=== PATIENT | female | born 1955 | race Caucasian/White ===

== ENCOUNTER 2023-01-08 11:05 | Observation (INO) | payer MEDICARE, MEDICAID, SELFPAY ==
[2023-01-08] VITALS (10 sets, daily range): BP systolic 118–146; BP diastolic 64–90; PULSE 65–91; RESP 15–27; TEMP 36.8–37.2; O2SAT 96–99; BMI 36.1; BMI 36.4
--- NOTE | ~2023-01-08 | CT_ITS ---
EXAMINATION: CT ABDOMEN AND PELVIS WITH CONTRAST CLINICAL INFORMATION: Right lower quadrant pain. Anemia. Rule out mass. COMPARISON: None available. TECHNIQUE: Multidetector volumetric images were obtained from the superior aspect of the liver through the pubic symphysis following administration 85 mL of Omnipaque 350 intravenous contrast. Sagittal and coronal reformatted images were obtained on the technologist's workstation. Oral contrast: Yes This CT examination was performed using dose optimization techniques as appropriate, variously including the following: *Automated exposure control *Adjustment of mA and/or kV according to patient size (this includes techniques or standardized protocols for targeted exams where dose is matched to indication/reason for exam; i.e. extremities or head) *Use of iterative reconstruction technique DLP: 686 mGy-cm FINDINGS: LUNG BASES: Tortuous descending thoracic aorta. Esophageal hernia. LIVER, GALLBLADDER, AND BILIARY TREE: The liver is normal in size, shape, and attenuation. Small liver cysts. No biliary ductal dilatation is present. The gallbladder is unremarkable with no evidence of radiopaque gallstones, gallbladder wall thickening, or obvious pericholecystic inflammatory changes. PANCREAS: Unremarkable. SPLEEN: Unremarkable. ADRENAL GLANDS: Unremarkable. KIDNEYS AND URETERS: The kidneys are normal in size, shape, and attenuation. There is mild [id number] right hydronephrosis and proximal ureteral dilatation. The right distal ureter does not appear dilated. No stone is seen. The left kidney is unremarkable. BLADDER: Unremarkable. GASTROINTESTINAL TRACT: Diverticulosis of the colon. No evidence of diverticulitis. No mass seen. The small and large bowel are unremarkable. The appendix is unremarkable. ABDOMINAL WALL: Small umbilical hernia containing fat. LYMPH NODES: Normal. VASCULAR: Unremarkable. PELVIC VISCERA: Unremarkable. OSSEOUS STRUCTURES: Curvature of the lumbar spine to the left and degenerative changes. CT/CT abdomen pelvis w IV con IMPRESSION: Diverticulosis. No evidence of diverticulitis. Large esophageal hernia. Mild to moderate right hydronephrosis and proximal ureteral dilatation. The right distal ureter does not appear dilated. No stone seen. Fleischner guidelines were followed.
--- NOTE | ~2023-01-08 | US_ITS ---
EXAMINATION: ULTRASOUND RENAL AND BLADDER CLINICAL INFORMATION: Right hydronephrosis. COMPARISON: CT abdomen from 01/08/2023 TECHNIQUE: Real-time imaging of the right kidney and bladder FINDINGS: RIGHT KIDNEY: 11.9 x 5.3 x 5.6 cm (SAG x AP x TRV). The kidney is normal in size, contour, and echogenicity. Renal cortical thickness is normal. Mild right-sided hydroureteronephrosis. No calculus identified. LEFT KIDNEY: Not evaluated. BLADDER: Limited evaluation of the urinary bladder demonstrates a right ureteral jet visualized. US/US renal RT IMPRESSION: 1. Mild right-sided hydroureteronephrosis without nephrolithiasis. 2. Limited evaluation of the urinary bladder demonstrates a right ureteral jet visualized. 3. Left kidney not evaluated.
--- NOTE | 2023-01-08 11:16 | ECG_ITS ---
Test Reason : low h+h Blood Pressure : / mmHG Vent. Rate : 079 BPM Atrial Rate : 079 BPM P-R Int : 176 ms QRS Dur : 094 ms QT Int : 396 ms P-R-T Axes : 043 -10 017 degrees QTc Int : 454 ms Normal sinus rhythm Normal ECG No previous ECGs available Referred By: Vincent Nolnad Electronically Signed By:HERBER RODRÍGUEZ
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
[2023-01-08 11:40] LABS: Basophils Absolute Auto 0.1 X10*3/uL (0.0-0.2); Basophils Percent Auto 0.8 % (0-2); Eosinophils Absolute Auto 0.1 X10*3/uL (0.0-0.4); Eosinophils Percent Auto 1.7 % (0-4); Hematocrit 23.5 % (37.0-47.0); Imm Gran Abs Auto 0.04 X10*3/uL (0.00-0.03); Imm Gran Pct Auto 0.6 % (0.0-0.4); Lymphocytes Absolute Auto 0.8 X10*3/uL (1.2-4.9); Lymphocytes Percent Auto 12.1 % (20-40); MANUAL DIFF FLAG SCAN; Mean Corpuscular HGB Conc 27.2 g/dl (31.0-35.0); Mean Corpuscular Hemoglobin 16.2 pg (27.0-33.0); Monocytes Absolute Auto 0.4 X10*3/uL (0.1-1.2); Monocytes Percent Auto 5.9 % (2-11); Neutrophils Percent Auto 78.9 % (45-73); PLT CLUMP 1; Red Blood Count 3.96 X10*6/uL (4.20-5.50); Red Cell Distribution Width 21.2 % (11.0-16.0); SCAN SMEAR FLAG 1
[2023-01-08 11:43] LABS: Hemoglobin 6.4 g/dl (12.0-16.0)
[2023-01-08 11:44] LABS: Mean Corpuscular Volume 59.3 fL (80.0-98.0)
--- OUTSIDE RECORDS SUMMARY | 2023-01-08 11:46 | XMS_ITS | Continuity of Care Document ---
Author Name Unknown Organization [facility] Adult Address [address] [place] [address]- Care Team Providers Care Capper Machine Operator Name Role Phone Elis FANG, Reagan Primary Care Physician Encounter [facility] Date(s): 08/31/21 - 11/01/21 [facility] Adult [address] [place] [address]- Attending Physician: Reagan Gillis MD Allergies, Adverse Reactions, Alerts Substance Reaction Severity Status lisinopril Active Other Environmental Allergy metal- itching Active Immunizations Given and Recorded Vaccine Date Status Refusal Reason SARS-CoV-2 (COVID-19) mRNA BNT-162b2 vac 03/29/21 Recorded SARS-CoV-2 (COVID-19) mRNA-1273 vaccine 09/23/20 R ecorded SARS-CoV-2 (COVID-19) mRNA-1273 vaccine 08/26/20 R ecorded Medications amLODIPine 5 mg oral tablet 1 tablet, By Mouth, Daily, # 90 tablet, 1 Refills, Maintenance, 09/13/21 19:37:00 EDT, [facility]/pharmacy#[id number], 155.2, cm, 08/31/21 7:57:00 EDT, Height Start Date: 09/13/21 Status: Ordered atorvastatin 10 mg oral tablet 1 tablet, By Mouth, Daily, # 90 tablet, 1 Refills, Maintenance, 09/12/21 14:26:00 EDT, [facility]/pharmacy#[id number], 155.2, cm, 08/31/21 7:57:00 EDT, Height Start Date: 09/12/21 Status: Ordered irbesartan 75 mg oral tablet 1 tablet, By Mouth, Daily, # 90 tablet, 1 Refills, [id number], 155.2, cm, 11/03/20 14:15:00 EDT, Height Start Date: 08/17/21 Status: Ordered levothyroxine 0.1 mg oral tablet 1 tablet, By Mouth, Daily, # 90 tablet, 1 Refills, [facility], 155.2, cm, 11/03/20 14:15:00 EDT, Height Start Date: 06/12/21 Status: Ordered omeprazole 20 mg oral delayed release tablet 1 tablet, By Mouth, Daily, # 28 tablet, 6 Refills, 11/01/21 11:15:00 EDT, [facility]/pharmacy #[id number], 155.2, cm, 08/31/21 7:57:00 EDT, Height Start Date: 11/01/21 Status: Ordered tamoxifen 20 mg oral tablet 1 tablet = 20 mg, By Mouth, Daily, # 90 tablet, 2 Refills, Maintenance, 05/27/16 9:33:08, Tablet Start Date: 05/27/16 Status: Ordered Problem List Condition Effective Dates Status Health Status Inform ant Benign hypertension(Confirmed) Active GERD (gastroesophageal reflu x disease)(Confirmed) Active Glaucoma(Confirmed) Active 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
--- OUTSIDE RECORDS SUMMARY | 2023-01-08 11:46 | XMS_ITS | Continuity of Care Document ---
Author Name Unknown Organization [facility] Adult Address [address] [place] [address]- Care Team Providers Care Operations Lieutenant Name Role Phone Ahsley AYALA, Heather Walker Primary Care Physicia n Encounter [facility] Date(s): 10/16/20 - 11/15/[address] [facility] Adult [address] [place] [id number]- Allergies, Adverse Reactions, Alerts Substance Reaction Severity Status lisinopril Active Other Environmental Allergy metal- itching Active Immunizations Given and Recorded Vaccine Date Status Refusal Reason SARS-CoV-2 (COVID-19) mRNA-1273 vaccine 09/23/20 R ecorded SARS-CoV-2 (COVID-19) mRNA-1273 vaccine 08/26/20 R ecorded Medications amLODIPine 5 mg oral tablet 5 mg, 1, tablet, By Mouth, Daily, # 90 tablet, Refills 1, Tot. Refills 1, Maintenance, 11/03/20 14:20:00 EDT, Route to Pharmacy Electronically, [facility]/pharmacy #[id number], Partial fill upon patient request if the prescription is for a schedule II opioid drug.... Start Date: 11/03/20 Status: Ordered atorvastatin 10 mg oral tablet 1 tablet = 10 mg, By Mouth, Daily, # 90 tablet, 0 Refills, Maintenance, 11/03/20 14:13:00 EDT, [facility]/pharmacy #[id number], Partial fill upon patient request if the prescription is for a schedule II opioid drug., 155.2, cm, 11/03/20 13:47:00 EDT, Height Start Date: 11/03/20 Status: Ordered irbesartan 75 mg oral tablet 1 tablet = 75 mg, By Mouth, Daily, # 90 tablet, 1 Refills, Maintenance, 11/03/20 14:20:00 EDT, Tablet, [id number], Partial fill upon patient request if the prescription is for a schedule II opioid drug., 155.2, cm, 11/03/20 14:15:00 EDT, Height Start Date: 11/03/20 Status: Ordered levothyroxine 0.1 mg oral tablet 1 tablet = 100 mcg, By Mouth, Daily, # 90 tablet, 1 Refills, Maintenance, 11/03/20 14:09:00 EDT, Tablet, [id number], Partial fill upon patient request if the prescription is for a schedule IIopioid drug., 155.2, cm, 11/03/20 13:47:00 EDT, Height Start Date: 11/03/20 Status: Ordered omeprazole 20 mg oral delayed release tablet 1 tablet = 20 mg, By Mouth, Daily, # 30 tablet, 3 Refills, Maintenance, 10/18/20 15:54:00 EDT, EC Tablet, [facility]/pharmacy #[id number], Partial fill upon patient request if the prescription is for a schedule II opioid drug., 155.2, cm, 10/18/20 15:08:00 EDT, He... Start Date: 10/18/20 Status: Ordered tamoxifen 20 mg oral tablet [...] breast(Confirmed) Active HLD (hyperlipidemia)(Confirmed) Active Hypothyroidism(Confirmed) Active Use of tamoxifen (Nolvadex)(Confirmed) Active Encounter for screening colonoscopy(Confirmed) Active Social History Social History Type Response Smoking Status Never smoker entered on: 07/07/14 Sex
--- OUTSIDE RECORDS SUMMARY | 2023-01-08 11:46 | XMS_ITS | Continuity of Care Document ---
Author Name Unknown Organization [facility] Adult Address [address] [place] [address]- Care Team Providers Care Set Up / Operator Name Role Phone Ashley AYALA, Heather Walker Primary Care Physicia n [id number] Date(s): 02/10/21 - 07/25/21 [facility] Adult [address] [place] [id number]- Attending Physician: Ashley AYALA, Heather Walker Referring Physician: Luis Velez MD Allergies, Adverse Reactions, Alerts Substance Reaction Severity Status lisinopril Active Other Environmental Allergy metal- itching Active Immunizations Given and Recorded Vaccine Date Status Refusal Reason SARS-CoV-2 (COVID-19) mRNA-1273 vaccine 09/23/20 R ecorded SARS-CoV-2 (COVID-19) mRNA-1273 vaccine 08/26/20 R ecorded Medications amLODIPine 5 mg oral tablet 1 tablet, By Mouth, Daily, # 90 tablet, 1 Refills, [facility], 155.2, cm, 11/03/20 14:15:00 EDT, Height Start Date: 03/14/21 Status: Ordered atorvastatin 10 mg oral tablet 1 tablet, By Mouth, Daily, # 90 tablet, 1 Refills, [facility], 155.2, cm, 11/03/20 14:15:00 EDT, Height Start Date: 02/03/21 Status: Ordered irbesartan 75 mg oral tablet 1 tablet, By Mouth, Daily, # 90 tablet, 1 Refills, [facility], 155.2, cm, 11/03/20 14:15:00 EDT, Height Start Date: 03/14/21 Status: Ordered levothyroxine 0.1 mg oral tablet 1 tablet, By Mouth, Daily, # 90 tablet, 1 Refills, [facility], 155.2, cm, 11/03/20 14:15:00 EDT, Height Start Date: 06/12/21 Status: Ordered omeprazole 20 mg oral delayed release tablet 1 tablet, By Mouth, Daily, # 28 tablet, 2 Refills, [facility], 155.2, cm, 11/03/20 14:15:00 EDT, Height Start Date: 05/04/21 Status: Ordered tamoxifen 20 mg oral tablet [...]
--- OUTSIDE RECORDS SUMMARY | 2023-01-08 11:46 | XMS_ITS | Continuity of Care Document ---
Author Name Unknown Organization [facility] Adult Address [address] [place] [address]- Care Team Providers Care Assistant To The President Name Role Phone Elis FAGN, Reagan Primary Care Physician Encounter [facility] Date(s): 10/08/22 - 11/07/22 [facility] Adult [address] [place] [address]- Allergies, Adverse Reactions, Alerts Substance Reaction Severity Status lisinopril Active Other Environmental Allergy metal- itching Active Immunizations Given and Recorded Vaccine Date Status Refusal Reason SARS-CoV-2 (COVID-19) mRNA BNT-162b2 vac 03/29/21 Recorded SARS-CoV-2 (COVID-19) mRNA-1273 vaccine 09/23/20 R ecorded SARS-CoV-2 (COVID-19) mRNA-1273 vaccine 08/26/20 R ecorded Medications amLODIPine 5 mg oral tablet 1 tablet, By Mouth, Daily, # 90 tablet, 1 Refills, Maintenance, 07/11/22 16:13:00 EDT, [facility], 155.2, cm, 11/23/21 15:08:00 EDT, Height Start Date: 07/11/22 Status: Ordered atorvastatin 10 mg oral tablet 1 tablet, By Mouth, Daily, # 90 tablet, 1 Refills, [facility], 155.2, cm, 11/23/21 15:08:00 EDT, Height Start Date: 12/19/21 Status: Ordered irbesartan 75 mg oral tablet 1 tablet, By Mouth, Daily, # 90 tablet, 0 Refills, Maintenance, 10/09/22 8:43:00 EDT, [facility], 155.2, cm, 11/23/21 15:08:00 EDT, Height Start Date: 10/09/22 Status: Ordered levothyroxine 0.1 mg oral tablet 1 tablet, By Mouth, Daily, # 90 tablet, 1 Refills, Maintenance, 07/11/22 16:33:00 EDT, [facility], 155.2, cm, 11/23/21 15:08:00 EDT, Height Start Date: 07/11/22 Status: Ordered omeprazole 20 mg oral enteric coated capsule 1 capsule, By Mouth, Daily, # 90 capsule, 1 Refills, Maintenance, 10/08/22 16:22:00 EDT, [facility], 155.2, cm, 11/23/21 15:08:00 EDT, Height Start Date: 10/08/22 Status: Ordered tamoxifen 20 mg oral tablet 1 tablet = 20 mg, By Mouth, Daily, # 90 tablet, 2 Refills, Maintenance, 05/27/16 9:33:08, Tablet Start Date: 05/27/16 Status: Ordered Problem List Condition Confirmation Course Effective Dates Status H ealth Status Informant GERD (gastroesophageal reflux disease) Confirmed Active Glaucoma Confirmed Active 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
--- OUTSIDE RECORDS SUMMARY | 2023-01-08 11:46 | XMS_ITS | Continuity of Care Document ---
Author Name Unknown Organization [facility] Adult Address [address] [place] [address]- Care Team Providers Care Batch Mixer Name Role Phone Reagan Gillis MD Primary Care Physician [phone] Encounter [facility] Date(s): 11/24/21 - 12/24/21 [facility] Adult [address] [place] [address]- Allergies, Adverse Reactions, Alerts Substance Reaction Severity [...] tablet, 1 Refills, Maintenance, 09/13/21 19:37:00 EDT, [facility]/pharmacy#[id number], 155.2, cm, 08/31/21 7:57:00 EDT, Height Start Date: 09/13/21 Status: Ordered atorvastatin 10 mg oral tablet 1 tablet, By Mouth, Daily, # 90 tablet, 1 Refills, [facility], 155.2, cm, 11/23/21 15:08:00 EDT, Height Start Date: 12/19/21 Status: Ordered irbesartan 75 mg oral tablet 1 tablet, By Mouth, Daily, # 90 tablet, 1 Refills, [facility], 155.2, cm, 11/03/20 14:15:00 EDT, Height Start Date: 08/17/21 Status: Ordered levothyroxine 0.1 mg oral tablet 1 tablet, By Mouth, Daily, # 90 tablet, 1 Refills, [facility], 155.2, cm, 11/23/21 15:08:00 EDT, Height Start Date: 12/19/21 Status: Ordered omeprazole 20 mg oral delayed release tablet 1 tablet, By Mouth, Daily, # 28 tablet, 6 Refills, 11/01/21 11:15:00 EDT, [id number], 155.2, cm, 08/31/21 7:57:00 EDT, Height Start Date: 11/01/21 Status: Ordered tamoxifen 20 mg oral tablet 1 tablet = 20 mg, By Mouth, Daily, # 90 tablet, 2 Refills, Maintenance, 05/27/16 9:33:08, Tablet Start Date: 05/27/16 Status: Ordered Problem List Condition Effective Dates Status Health Status Inform ant GERD (gastroesophageal reflu x disease)(Confirmed) Active Glaucoma(Confirmed) Active 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
--- OUTSIDE RECORDS SUMMARY | 2023-01-08 11:46 | XMS_ITS | Continuity of Care Document ---
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 Start Date: 11/03/20 Status: Ordered atorvastatin 10 mg oral tablet 1 tablet = 10 mg, By Mouth, Daily, # 90 tablet, 0 Refills, Maintenance, 11/03/20 14:13:00 EDT, [id number], Partial fill upon patient request [...] 1 Refills, Maintenance, 11/03/20 14:09:00 EDT, Tablet, [facility]/pharmacy #[id number], Partial fill upon patient request if the prescription is for a schedule IIopioid drug., 155.2, cm, 11/03/20 13:47:00 EDT, Height Start Date: 11/03/20 Status: Ordered omeprazole 20 mg oral delayed release tablet 1 tablet = 20 mg, By Mouth, Daily, # 30 tablet, 3 Refills, Maintenance, 10/18/20 15:54:00 EDT, EC Tablet, [facility]/pharmacy #[id number], Partial fill upon patient request [...] (Nolvadex)(Confirmed) Active Encounter for screening colonoscopy(Confirmed) Active Diagnosis Diagnosis Type Effective Dates Health Status Clinical Service Informant Benign hypertension Discharge Diagnosis 11/03/20 Hypothyroidism Discharge Diagnosis 11/03/20 History of ductal carcinoma in situ (DCIS) of breast Discharge Diagnosis 11/03/20 Positive depression screening Discharge Diagnosis 11/03/20 Vital Signs Most recent to oldest [Reference Range]: 1 2 Height 155.2 cm (11/03/20 2:15 PM) 155.2 cm (11/03/20 1:47 PM) Weight 89.2 kg (11/03/20 1:47 PM) Oxygen Saturation [94-100 %] 98 % (11/03/20 1:47 PM) Pulse Rate [55-90 bpm] 69 bpm (11/03/20 1:47 PM) Body Mass Index [18.5-24.99] 37.03 *>HHI* (11/03/20 1:47 PM) Blood Pressure [90-138/55-84 mm Hg] 125/ 82mm Hg (11/03/20 2:15 PM) 120/82mm Hg (11/03/20 1:47 PM) Temperature [96.8-100.4 DegF] 98.8 DegF (11/03/20 1:47 PM) Mode of Delivery (Oxygen) Room air (11/03/20 1:47 PM) Blood pressure sites Arm, left (11/03/20 1:47 PM) Temperature Route Oral (11/03/20 1:47 PM) Weight Obtained Via Standing scale (11/03/20 1:47 PM) Social History Social History Type Response Smoking Status Never smoker entered on: 07/07/14 Sex
--- OUTSIDE RECORDS SUMMARY | 2023-01-08 11:46 | XMS_ITS | Continuity of Care Document ---
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) - 10/18/20 GERD (gastroesophageal reflux disease)(Discharge Diagnosis) - 10/18/20 Attending Physician: Not on Staff, Attending MD Allergies, Adverse Reactions, Alerts Substance Reaction Severity Status lisinopril Active Other Environmental Allergy metal- itching Active Immunizations Given and Recorded Vaccine Date Status Refusal Reason SARS-CoV-2 (COVID-19) mRNA-1273 vaccine 09/23/20 R ecorded SARS-CoV-2 (COVID-19) mRNA-1273 vaccine 08/26/20 R ecorded Medications amLODIPine 5 mg oral tablet 5 mg, 1, tablet, By Mouth, Daily, Additional refills require an office visit, # 30 tablet, Refills 0, Tot. Refills 0, Maintenance, 10/18/20 15:51:00 EDT, Route to Pharmacy Electronically, [facility]/pharmacy #[id number], Partial fill upon patient request if the pr... Start Date: 10/18/20 Status: Ordered irbesartan 75 mg oral tablet 1 tablet = 75 mg, By Mouth, Daily, Additional refills require an office visit, # 30 tablet, 0 Refills, Maintenance, 10/18/20 15:54:00 EDT, Tablet, [facility]/pharmacy #[id number], Partial fill upon patient request if the prescription is for a schedule II opioid drSujey. Start Date: 10/18/20 Status: Ordered levothyroxine 0.1 mg oral tablet 1 tablet = 100 mcg, By Mouth, Daily, # 30 tablet, 0 Refills, Maintenance, 10/18/20 15:45:00 EDT, Tablet, Partial fill upon patient request if the prescription is for a schedule II opioid drug. Start Date: 10/18/20 Status: Ordered omeprazole 20 mg oral delayed release tablet 1 tablet = 20 mg, By Mouth, Daily, # 30 tablet, 3 Refills, Maintenance, 10/18/20 15:54:00 EDT, EC Tablet, [facility]/pharmacy #[id number], Partial fill upon patient request if the prescription is for a schedule II opioid drug., 155.2, cm, 10/18/20 15:08:00 EDT, [facility] Start Date: 10/18/20 Status: Ordered tamoxifen 20 mg oral tablet 1 tablet = 20 mg, By Mouth, Daily, # 90 tablet, 2 Refills, Maintenance, 05/27/16 9:33:08, Tablet Start Date: 05/27/16 Status: Ordered Problem List Condition Effective Dates Status Health Status Inform ant Benign hypertension(Confirmed) Active GERD (gastroesophageal reflu x disease)(Confirmed) Active History of ductal carcinoma in situ (DCIS) of breast(Confirmed) Active Hypercholesteremia(Confirmed) Active Hypothyroidism(Confirmed) Active Use of tamoxifen (Nolvadex)(Confirmed) Active Encounter for screening colonoscopy(Confirmed) Active Diagnosis Diagnosis Type Effective Dates Health Status Clinical Service Informant Benign hypertension Discharge Diagnosis 10/18/20 Hypercholesteremia Discharge Diagnosis 10/18/20 Hypothyroidism Discharge Diagnosis 10/18/20 History of ductal carcinoma in situ (DCIS) of breast Discharge Diagnosis 10/18/20 GERD (gastroesophageal reflux disease) Discharge Diagnosis 10/18/20 Vital Signs Most recent to oldest [Reference Range]: 1 Height 155.2 cm (10/18/20 3:08 PM) Weight 84 kg (10/18/20 3:08 PM) Body Mass Index [18.5-24.99] 34.87 *>HHI* (10/18/20 3:08 PM) Weight Obtained Via Patient/family state d (10/18/20 3:08 PM) Social History Social History Type Response Smoking Status Never smoker entered on: 07/07/14 Sex
--- OUTSIDE RECORDS SUMMARY | 2023-01-08 11:46 | XMS_ITS | Continuity of Care Document ---
Author Name Unknown Organization [facility] Adult Address [address] [place] [address]- Care Team Providers Care Career Education Teacher Name Role Phone Elis FANG, Reagan Primary Care Physician Encounter [facility] Date(s): 10/08/22 - 11/07/22 [facility] Adult [address] [place] [address]- Allergies, Adverse Reactions, Alerts Substance Reaction Severity [...] tablet, 1 Refills, Maintenance, 07/11/22 16:13:00 EDT, [facility], 155.2, cm, 11/23/21 15:08:00 EDT, Height Start Date: 07/11/22 Status: Ordered atorvastatin 10 mg oral tablet 1 tablet, By Mouth, Daily, # 90 tablet, 1 Refills, [facility], 155.2, cm, 11/23/21 15:08:00 EDT, Height Start Date: 12/19/21 Status: Ordered irbesartan 75 mg oral tablet 1 tablet, By Mouth, Daily, # 90 tablet, 0 Refills, Maintenance, 10/09/22 8:43:00 EDT, [facility] 284[facility], 155.2, cm, 11/23/21 15:08:00 EDT, Height Start Date: 10/09/22 Status: Ordered levothyroxine 0.1 mg oral tablet 1 tablet, By Mouth, Daily, # 90 tablet, 1 Refills, Maintenance, 07/11/22 16:33:00 EDT, [facility], 155.2, cm, 11/23/21 15:08:00 EDT, Height Start Date: 07/11/22 Status: Ordered omeprazole 20 mg oral enteric coated capsule 1 capsule, By Mouth, Daily, # 90 capsule, 1 Refills, Maintenance, 10/08/22 16:22:00 EDT, [facility], 155.2, cm, 11/23/21 15:08:00 EDT, Height Start [...] Team Personnel Name: Reagan Gillis MD Position: [facility] Physician - Primary Care Member Role: PCP Address: Address: [address] [place] [address] [address] [place] [address]- Care Team Related Persons Name: RONAL MAY Address: home [address] [place] [id number]
--- OUTSIDE RECORDS SUMMARY | 2023-01-08 11:46 | XMS_ITS | Continuity of Care Document ---
Author Name Unknown Organization [facility] Adult Address [address] [place] [address]- Care Team Providers Care Motor Power Connector Name Role Phone Reagan Gillis MD Primary Care Physician [phone] Encounter [facility] Date(s): 11/23/21 - 12/23/21 [facility] Adult [address] [place] [address]- Attending Physician: Hailee Guillaume Admitting Physician: AdmtrHailee Referring Physician: Admtr, Ar8 Allergies, Adverse Reactions, Alerts Substance Reaction Severity [...] tablet, 1 Refills, Maintenance, 09/13/21 19:37:00 EDT, [facility]/pharmacy#[id number], 155.2, cm, 08/31/21 7:57:00 EDT, Height Start Date: 09/13/21 Status: Ordered atorvastatin 10 mg oral tablet 1 tablet, By Mouth, Daily, # 90 tablet, 1 Refills, [facility], 155.2, cm, 11/23/21 15:08:00 EDT, Height Start Date: 12/19/21 Status: Ordered irbesartan 75 mg oral tablet 1 tablet, By Mouth, Daily, # 90 tablet, 1 Refills, [facility] 41065, 155.2, cm, 11/03/20 14:15:00 EDT, Height Start Date: 08/17/21 Status: Ordered levothyroxine 0.1 mg oral tablet 1 tablet, By Mouth, Daily, # 90 tablet, 1 Refills, [facility] 57572, 155.2, cm, 11/23/21 15:08:00 EDT, Height Start Date: 12/19/21 Status: Ordered omeprazole 20 mg oral delayed release tablet 1 tablet, By Mouth, Daily, # 28 tablet, 6 Refills, 11/01/21 11:15:00 EDT, [facility]/pharmacy #[id number], 155.2, cm, 08/31/21 7:57:00 EDT, Height [...] Team Personnel Name: Reagan Gillis MD Address: [address] [place] [address]
--- OUTSIDE RECORDS SUMMARY | 2023-01-08 11:46 | XMS_ITS | Continuity of Care Document ---
Author Name Unknown Organization [facility] Adult Address [address] [place] [address]- Care Team Providers Care Asphalt Surface Heater Operator Name Role Phone Elis FANG, Reagan Primary Care Physician [phone] Encounter [facility] Date(s): 08/17/21 - 09/16/21 [facility] Adult [address] [place] [address]- Allergies, Adverse Reactions, Alerts Substance Reaction Severity [...] tablet, 1 Refills, Maintenance, 09/13/21 19:37:00 EDT, [facility]/pharmacy#[id number], 155.2, cm, 08/31/21 7:57:00 EDT, Height Start Date: 09/13/21 Status: Ordered atorvastatin 10 mg oral tablet 1 tablet, By Mouth, Daily, # 90 tablet, 1 Refills, Maintenance, 09/12/21 14:26:00 EDT, [facility]/pharmacy#[id number], 155.2, cm, 08/31/21 7:57:00 EDT, Height Start Date: 09/12/21 Status: Ordered irbesartan 75 mg oral tablet 1 tablet, By Mouth, Daily, # 90 tablet, 1 Refills, [facility], 155.2, cm, 11/03/20 14:15:00 EDT, Height Start Date: 08/17/21 Status: Ordered levothyroxine 0.1 mg oral tablet 1 tablet, By Mouth, Daily, # 90 tablet, 1 Refills, [facility], 155.2, cm, 11/03/20 14:15:00 EDT, Height Start Date: 06/12/21 Status: Ordered omeprazole 20 mg oral delayed release tablet 1 tablet, By Mouth, Daily, # 28 tablet, 2 Refills, [facility], 155.2, cm, 11/03/20 14:15:00 EDT, Height Start Date: 08/07/21 Status: Ordered tamoxifen 20 mg oral tablet [...]
--- OUTSIDE RECORDS SUMMARY | 2023-01-08 11:46 | XMS_ITS | Continuity of Care Document ---
Author Name Unknown Organization [facility] Adult Address [address] [place] [address]- Care Team Providers Care Mainspring Former Brace End Name Role Phone Reagan Gillis MD Primary Care Physician [phone] Encounter [facility] Date(s): 08/31/21 - 09/07/21 [facility] Adult [address] [place] [address]- Encounter Diagnosis Breast pain, left(Discharge Diagnosis) - 09/03/21 Skin mole(Discharge Diagnosis) - 09/03/21 Mild major depression, single episode(Discharge Diagnosis) - 09/03/21 Attending Physician: Reagan Gillis MD Allergies, Adverse [...] # 90 tablet, 1 Refills, [facility], 155.2, cm, 11/03/20 14:15:00 EDT, Height Start Date: 03/14/21 Status: Ordered atorvastatin 10 mg oral tablet 1 tablet, By Mouth, Daily, # 90 tablet, 1 Refills, [facility], 155.2, cm, 11/03/20 14:15:00 EDT, Height Start Date: 02/03/21 Status: Ordered irbesartan 75 mg oral tablet 1 tablet, By Mouth, Daily, # 90 tablet, 1 Refills, [facility], 155.2, cm, 11/03/20 14:15:00 EDT, Height Start Date: 08/17/21 Status: Ordered levothyroxine 0.1 mg oral tablet 1 tablet, By Mouth, Daily, # 90 tablet, 1 Refills, [facility], 155.2, cm, 11/03/20 14:15:00 EDT, Height Start Date: 06/12/21 Status: Ordered omeprazole 20 mg oral delayed release tablet 1 tablet, By Mouth, Daily, # 28 tablet, 2 Refills, [facility], 155.2, cm, 11/03/20 14:15:00 EDT, Height Start [...] Diagnosis Diagnosis Type Effective Dates Health Status Cl inical Service Informant Breast pain, left Discharge Diagnosis 09/03/21 Skin mole Discharge Diagnosis 09/03/21 Mild major depression, single episode Discharge Diagnosis 09/03/21 Vital Signs Most recent to oldest [Reference Range]: 1 Height 155.2 cm (08/31/21 7:57 AM) Weight 89 kg (08/31/21 7:57 AM) Oxygen Saturation [94-100 %] 98 % (08/31/21 7:57 AM) Pulse Rate [55-90 bpm] 111 bpm *H* (08/31/21 7:57 AM) Body Mass Index [18.5-24.99] 36.95 *>HHI* (08/31/21 7:57 AM) Blood Pressure [90-138/55-84 mm Hg] 110/ 70mm Hg (08/31/21 7:57 AM) Temperature [96.8-100.4 DegF] 98.6 DegF (08/31/21 7:57 AM) Mode of Delivery (Oxygen) Room air (08/31/21 7:57 AM) Blood pressure sites Arm, left (08/31/21 7:57 AM) Temperature Route Oral (08/31/21 7:57 AM) Weight Obtained Via Standing scale (08/31/21 7:57 AM) Social History Social History Type Response Smoking Status Never smoker entered on: 07/07/14 Sex
--- OUTSIDE RECORDS SUMMARY | 2023-01-08 11:46 | XMS_ITS | Continuity of Care Document ---
Author Name Unknown Organization [facility] Adult Address [address] [place] [address]- Care Team Providers Care Systems Specialist Name Role Phone Reagan Gillis MD Primary Care Physician Encounter [facility] Date(s): 11/23/21 - 11/30/21 [facility] Adult [address] [place] [address]- Encounter Diagnosis Well adult exam(Discharge Diagnosis) - 11/23/21 HTN (hypertension)(Discharge Diagnosis) - 11/23/21 Hyperlipidemia, unspecified(Discharge Diagnosis) - 11/23/21 Hypothyroidism(Discharge Diagnosis) - 11/23/21 GERD (gastroesophageal reflux disease)(Discharge Diagnosis) - 11/23/21 Attending Physician: Reagan Gillis MD Allergies, Adverse [...] tablet, 1 Refills, Maintenance, 09/13/21 19:37:00 EDT, [id number], 155.2, cm, 08/31/21 7:57:00 EDT, Height Start Date: 09/13/21 Status: Ordered atorvastatin 10 mg oral tablet 1 tablet, By Mouth, Daily, # 90 tablet, 1 Refills, Maintenance, 09/12/21 14:26:00 EDT, [id number], 155.2, cm, 08/31/21 7:57:00 EDT, Height Start Date: 09/12/21 Status: Ordered irbesartan 75 mg oral tablet 1 tablet, By Mouth, Daily, # 90 tablet, 1 Refills, [facility] 23043, 155.2, cm, 11/03/20 14:15:00 EDT, Height Start Date: 08/17/21 Status: Ordered levothyroxine 0.1 mg oral tablet 1 tablet, By Mouth, Daily, # 90 tablet, 1 Refills, [facility], 155.2, cm, 11/03/20 14:15:00 EDT, Height Start [...] Active Hypothyroidism(Confirmed) Active Obese class II(Confirmed) Active Diagnosis Diagnosis Type Effective Dates Health Status Clinical Service Informant Well adult exam Discharge Diagnosis 11/23/21 HTN (hypertension) Discharge Diagnosis 11/23/21 Hyperlipidemia, unspecified Discharge Diagnosis 11/23/21 Hypothyroidism Discharge Diagnosis 11/23/21 GERD (gastroesophageal reflux disease) Discharge Diagnosis 11/23/21 Vital Signs Most recent to oldest [Reference Range]: 1 2 Height 155.2 cm (11/23/21 3:08 PM) 155.2 cm (11/23/21 2:57 PM) Weight 86.3 kg (11/23/21 2:57 PM) Oxygen Saturation [94-100 %] 98 % (11/23/21 2:57 PM) Pulse Rate [55-90 bpm] 80 bpm (11/23/21 2:57 PM) Body Mass Index [18.5-24.99] 35.83 *>HHI* (11/23/21 2:57 PM) Blood Pressure [90-138/55-84 mm Hg] 123/ 71mm Hg (11/23/21 3:08 PM) 144/70mm Hg *H* (11/23/21 2:57 PM) Temperature [96.8-100.4 DegF] 98.8 DegF (11/23/21 2:57 PM) Mode of Delivery (Oxygen) Room air (11/23/21 2:57 PM) Blood pressure sites Arm, left (11/23/21 3:08 PM) Arm, left (11/23/21 2:57 PM) Temperature Route Oral (11/23/21 2:57 PM) Weight Obtained Via Standing scale (11/23/21 2:57 PM) Social History Social History Type Response Smoking Status Never (less than 100 in lifetime) entered on: 11/23/21 Sex
--- OUTSIDE RECORDS SUMMARY | 2023-01-08 11:47 | XMS_ITS | Continuity of Care Document ---
Author Name Unknown Organization [facility] Adult Address [address] [place] [address]- Care Team Providers Care Mainspring Winder Name Role Phone Ashley AYALA, Heather Walker Primary Care Physicia n Encounter [facility] Date(s): 06/25/21 - 07/25/21 [facility] Adult [address] [place] [address]- Attending Physician: Hailee Guillaume Admitting Physician: Hailee Guillaume Referring Physician: AdmtrHailee Allergies, Adverse Reactions, Alerts Substance Reaction Severity Status lisinopril Active Other Environmental Allergy metal- itching Active Immunizations Given and Recorded Vaccine Date Status Refusal Reason SARS-CoV-2 (COVID-19) mRNA-1273 vaccine 09/23/20 R ecorded SARS-CoV-2 (COVID-19) mRNA-1273 vaccine 08/26/20 R ecorded Medications amLODIPine 5 mg oral tablet 1 tablet, By Mouth, Daily, # 90 tablet, 1 Refills, [facility], 155.2, cm, 11/03/20 14:15:00 EDT, Height Start Date: 03/14/21 Status: Ordered atorvastatin 10 mg oral tablet 1 tablet, By Mouth, Daily, # 90 tablet, 1 Refills, [facility], 155.2, cm, 11/03/20 14:15:00 EDT, Height Start Date: 02/03/21 Status: Ordered irbesartan 75 mg oral tablet 1 tablet, By Mouth, Daily, # 90 tablet, 1 Refills, [facility], 155.2, cm, 11/03/20 14:15:00 EDT, Height Start Date: 03/14/21 Status: Ordered levothyroxine 0.1 mg oral tablet 1 tablet, By Mouth, Daily, # 90 tablet, 1 Refills, [facility], 155.2, cm, 11/03/20 14:15:00 EDT, Height Start Date: 06/12/21 Status: Ordered omeprazole 20 mg oral delayed release tablet 1 tablet, By Mouth, Daily, # 28 tablet, 2 Refills, [facility], 155.2, cm, 11/03/20 14:15:00 EDT, Height Start [...]
[2023-01-08 11:48] LABS: Prothrombin Time 11.6 SEC (11.1-13.3)
[2023-01-08 11:51] LABS: Partial Thromboplastin Time 24.3 SEC (26.0-36.4)
[2023-01-08 11:52] LABS: Alanine Aminotransferase 13 U/L (0-31); Albumin Level 4.2 g/dL (3.5-5.0); Alkaline Phosphatase 67 U/L (39-117); Anion Gap 10 (12-20); Aspartate Amino Transferase 19 U/L (5-31); Bilirubin Total 0.5 mg/dL (0.0-1.0); Blood Urea Nitrogen 10 mg/dL (9-16); Calcium 9.5 mg/dL (8.4-10.2); Carbon Dioxide 25 mmol/L (22-29); Chloride 110 mmol/L (96-108); Creatinine Clr Calc Pharmacy 71.9; Estimated Glomerular Filt Rate > 60; Glucose Random 103 mg/dL (60-115); Iron 15 mcg/dL (30-160); Lipase 19 U/L (8-78); Percent Iron Saturation 4 % (15-50); Phosphorus 2.2 mg/dL (2.7-4.5); Potassium 3.2 mmol/L (3.3-5.1); Sodium 142 mmol/L (135-145); Total Iron Binding Capacity 367 mcg/dL (228-428); Total Protein 7.7 g/dL (6.5-8.0); Unsaturated Iron Binding 352 ug/dL
[2023-01-08 12:07] LABS: Platelet Count 269 X10*3/uL (160-400); SLIDE REVIEW VERIFIED; White Blood Count 6.4 X10*3/uL (4.8-10.8)
[2023-01-08 13:40] LABS: Troponin-I High Sensitivity < 2.7 ng/L (<3.5-17.0)
--- NOTE | 2023-01-08 14:48 | PC.NURSE ---
pt sent to ED for low H&H. pt a&o x4, pleasant, calm, and cooperative. pt color appears well and is talking in full complete sentences. daughter, MD at bedside. 18G IV established to the LAC, labs drawn and sent. 20G IV established to the RAC. blood currently transfusing. pt tolerating well. no reaction to blood products. pt currently resting on stretcher in no apparent distress. call rosa within pt reach.
[2023-01-08 15:32] LABS: OBS Int Ctl Valid YES; OBS1 NEGATIVE (NEGATIVE)
--- NOTE | 2023-01-08 16:08 | PHA.MEDREC ---
Pharmacy Consult ? Medication Reconciliation Pharmacy has completed the medication reconciliation. Patient reported medications. Dali Yepez, IglesiaD
--- NOTE | 2023-01-08 16:59 | PM.IMHP ---
History of Present Illness Date of Service: 01/08/23 Attending physician on admission: Fer Brizuela Chief Complaint: anemia 67-year-old female history of hypertension, hyperlipidemia, hypothyroidism, history of breast cancer s/p lumpectomy and briefly treated with tamoxifen presents to the ED with her daughter who is a physician due to significant anemia. She had her annual physical history with PCP and lab work revealed H/H 6.6/25.2%. She does deny any melena, hematochezia, hematemesis, epistaxis, easy bruisability. She does however report occasional chest pains with exertion, dyspnea on exertion, palpitations, near syncopal episodes ongoing for several weeks. Her daughter also reports she is more pale than usual. She does have very poor diet with PICA. Reports cooking dinner but will often only eat carrots and popcorn. Will eat between 1-2 bags of baby carrots in a day. He denies any anorexia, abdominal pain, nausea, vomiting. Denies any unintentional weight loss. She has never undergone screening colonoscopy. On arrival, no leukocytosis. Significant microcytic anemia with H/H 6.4/23.5%, MCV 59.3 renal function normal. There is a mild hypokalemia of 3.2, phosphorus 2.2, electrolytes otherwise normal. Iron 15, TIBC within normal limits 367, 4% iron saturation. Hepatic function normal. Troponin undetectable. Stool occult blood negative. EKG shows NSR, rate 79, no ST/T-wave abnormality. CT abdomen/pelvis pending. She is currently being transfused 2 units packed red blood cells. Review of Systems Review of Systems: General: No fevers, malaise, unintentional weight loss HEENT: No blurred vision, diplopia. No sore throat, nasal congestion, rhinorrhea, sinus pain, ear pain Cardiovascular:+chest pain, +palpitations, +ble edema. Respiratory: +fuchs. No shortness of breath at rest, wheezing, cough GI: No abdominal pain, nausea, vomiting, diarrhea, constipation, melena, hematochezia : No dysuria, hematuria, increased urinary frequency, decreased urinary output MSK: No myalgia, back pain Neuro: No headaches, weakness, paresthesias Skin: No rashes or lesions [facility] Medical History History of ductal carcinoma in situ (DCIS) of breast Hypothyroidism Hyperlipidemia Hypertension Surgical History S/P lumpectomy of breast Social History Smoked in Last 30 Days: No Use of substances other than those prescribed or required for medical reasons: No Advance Directives: No Advance Directives Information Provided: Yes Meds Allergies Allergy/AdvReac Type Severity Reaction Status Date / Time lisinopril Allergy Angioedema Verified 01/08/23 11:10 Active Medications: Current Medications Acetaminophen (Acetaminophen 325 Mg Tablet) 650 mg PO Q6H PRN PRN Reason: Pain, Mild (Pain Scale 1-3) Docusate Sodium (Docusate Sodium 100 Mg Capsule) 100 mg PO DAILY PRN PRN Reason: Constipation Ondansetron HCl (Ondansetron Hcl 4 Mg/2 Ml Vial) 4 mg IVPUSH Q8H PRN PRN Reason: Nausea and Vomiting Polyethylene Glycol/Electrolytes (Peg 3350/Na Sulf,Bicarb,Cl/Kcl 4,000 Ml Soln.Recon) 240 ml PO Q10M [facility] Stop: 01/08/23 21:41 Sodium Chloride (0.9 % Sodium Chloride Flush 3 Ml Syringe) 3 ml IVFLUSH QSHIFT [facility] Home Medications Medication Instructions Recorded Confirmed Last Taken Type amlodipine 5 mg tablet 5 mg PO DAILY 01/08/23 01/08/23 01/08/23 History atorvastatin 10 mg tablet 10 mg PO DAILY 01/08/23 01/08/23 01/08/23 History irbesartan 75 mg tablet 75 mg PO DAILY 01/08/23 01/08/23 01/08/23 History levothyroxine 100 mcg tablet 100 mcg PO DAILY 01/08/23 01/08/23 01/08/23 History omeprazole 20 mg capsule,delayed 20 mg PO DAILY 01/08/23 01/08/23 01/08/23 History release Physical Exam Vital Signs and Narrative: Vital Signs: Last Vital Signs Temp 98.6 F 01/08/23 14:52 Pulse 65 01/08/23 14:52 Resp 21 H 01/08/23 14:52 BP 118/64 01/08/23 14:52 Pulse Ox 99 01/08/23 14:00 O2 Del Method Room Air 01/08/23 14:00 BMI result Body Mass Index 36.1 Constitutional - Awake and Alert, No apparent distress Eyes - PERRLA, EOMI Cardiovascular - S1S2, RRR, No edema Respiratory - Normal lung expansion, Normal respiratory effort, No respiratory distress, CTA bilaterally Gastrointestinal - NT / ND; +BS; No rebound or guarding Extremities - no calf tenderness bilaterally, no swelling Skin - Warm/Dry Neurological - Alert & oriented x3 Psychological - Appropriate affect Results Labs 01/08/23 11:31 01/08/23 11:31 Labs: Laboratory Results - last 24 hr 01/08/23 01/08/23 11:31 14:45 MCV 59.3 L MCH 16.2 L MCHC 27.2 L RDW 21.2 H Plt Count 269 MPV Not Reportable Immature Gran % (Auto) 0.6 H Neut % (Auto) 78.9 H Lymph % (Auto) 12.1 L [place] % (Auto) 5.9 Eos % (Auto) 1.7 Baso % (Auto) 0.8 Lymph # (Auto) 0.8 L [place] # (Auto) 0.4 Eos # (Auto) 0.1 Baso # (Auto) 0.1 Abs Immat Gran (auto) 0.04 H Absolute Neuts (auto) 5.0 Absolute Nucleated RBC 0.000 Nucleated RBC % (auto) 0.0 Smear Tech's Comments VERIFIED PT 11.6 INR 1.0 APTT 24.3 L Anion Gap 10 L Estim Creat Clear Calc 71.9 Estimated GFR > 60 Random Glucose 103 Calcium 9.5 Phosphorus 2.2 L Magnesium 2.0 Iron 15 L TIBC 367 % Saturation 4 L Unsat Iron Binding 352 Total Bilirubin 0.5 AST 19 ALT 13 Alkaline Phosphatase 67 Total Protein 7.7 Albumin 4.2 Lipase 19 Stool Occult Blood NEGATIVE Blood Type O Negative Antibody Screen NEGATIVE Crossmatch See Detail Assessment and Plan (1) Symptomatic anemia: Status: Acute (2) Iron deficiency: Status: Acute Plan 67-year-old female history of hypertension, hyperlipidemia, hypothyroidism, history of breast cancer s/p lumpectomy and briefly treated with tamoxifen to be observed for symptomatic anemia. #Symptomatic iron deficiency anemia- suspect acute on chronic -Likely r/t poor diet, but cannot r/o GI bleed. Nutrition to follow -Stool occult blood is negative. Has never undergone screening colonoscopy -gastroenterology consult. Plan for colonoscopy and possibly endoscopy tomorrow -initiate GoLYTELY prep at 19:00 -clear liquid diet, NPO after midnight -being transfused 2 units packed red blood cells in the ED -repeat CBC at 21:00, and a.m. -monitor on telemetry # hypertension -reasonably controlled -continue irbesartan, amlodipine # hyperlipidemia -continue statin # hypothyroidism -continue levothyroxine # severe obesity with BMI greater than 36 -encourage weight loss efforts DVT prophylaxis- SCps Full code Time Spent With Patient Time: Total time managing care of this patient today ____ minutes. Quality Stroke Does the patient have a stroke diagnosis?: No VTE Prior VTE?: No VTE Risk Level:: Medical - moderate - high VTE Device Contraindication: N/A - Device Ordered VTE Drug Contraindication: Treatment Not Indicated
[2023-01-08] MEDS: iohexoL 350 MG/ML 100 ML INFUS..BTL IV (17:07)
[2023-01-08] MEDS: Diatrizoate Meglumine, Sodium 30 ML SOLUTION PO (17:08)
[2023-01-08] MEDS: Sodium,Potassium Phosphates POWD.PACK 1 PACKET PO (18:26)
--- NOTE | 2023-01-08 18:42 | PC.NURSE ---
2nd unit if blood up and transfusing. pt stable with daughter at bedside. awaiting bed assignment. pt medicated per jun. clear liquid diet order. given cranberry juice and jello. call rosa within pt reach. all pt needs met don.
--- NOTE | 2023-01-08 19:05 | PC.NURSE ---
report given to DANIELLA Huertas
--- NOTE | 2023-01-08 19:42 | PC.NURSE ---
Pt report called to nurse Woody.
[2023-01-08] MEDS: Acetaminophen 325 MG TABLET 650 MG PO (20:23)
[2023-01-08] MEDS: 0.9 % Sodium Chloride Flush 3 ML SYRINGE IVFLUSH (21:53)
[2023-01-08] MEDS: PEG 3350/Na Sulf,Bicarb,Cl/KCL 4,000 ML SOLN.RECON 4000 ML PO (21:57)
[2023-01-09] VITALS (9 sets, daily range): BP systolic 113–146; BP diastolic 67–80; PULSE 59–89; RESP 14–18; TEMP 36.4–37; O2SAT 93–98
--- NOTE | 2023-01-09 01:42 | PC.NURSE ---
Patient alert and oriented x 4. Denies having any pain / discomfort. Received 2 units of blood within blood transfusion policy 3.5 hour time frame , no adverse reaction.
[2023-01-09 06:52] LABS: MANUAL DIFF FLAG NO
[2023-01-09 07:06] LABS: Anion Gap 11 (12-20); Blood Urea Nitrogen 7 mg/dL (9-16); Calcium 9.4 mg/dL (8.4-10.2); Carbon Dioxide 28 mmol/L (22-29); Chloride 107 mmol/L (96-108); Creatinine Clr Calc Pharmacy 84.1; Estimated Glomerular Filt Rate > 60; Glucose Random 95 mg/dL (60-115); Potassium 2.9 mmol/L (3.3-5.1); Sodium 143 mmol/L (135-145)
[2023-01-09] MEDS: 0.9 % Sodium Chloride Flush 3 ML SYRINGE IVFLUSH ×2 (07:38→16:22)
[2023-01-09 08:09] LABS: Basophils Absolute Auto 0.1 X10*3/uL (0.0-0.2); Basophils Percent Auto 0.8 % (0-2); Eosinophils Absolute Auto 0.2 X10*3/uL (0.0-0.4); Eosinophils Percent Auto 3.2 % (0-4); Hematocrit 27.5 % (37.0-47.0); Hemoglobin 8.2 g/dl (12.0-16.0); Imm Gran Abs Auto 0.08 X10*3/uL (0.00-0.03); Imm Gran Pct Auto 1.1 % (0.0-0.4); Lymphocytes Absolute Auto 1.3 X10*3/uL (1.2-4.9); Lymphocytes Percent Auto 18.9 % (20-40); Mean Corpuscular HGB Conc 29.8 g/dl (31.0-35.0); Mean Corpuscular Hemoglobin 18.7 pg (27.0-33.0); Monocytes Absolute Auto 0.5 X10*3/uL (0.1-1.2); Monocytes Percent Auto 7.2 % (2-11); NRBC Pct Auto 0.6 /100WBC (0.0-0.2); Neutrophils Absolute Auto 4.9 x10*3/uL (2.0-8.3); Neutrophils Percent Auto 68.8 % (45-73); Platelet Count 236 X10*3/uL (160-400); Red Blood Count 4.38 X10*6/uL (4.20-5.50); Red Cell Distribution Width 24.7 % (11.0-16.0); White Blood Count 7.1 X10*3/uL (4.8-10.8)
[2023-01-09 08:10] LABS: Mean Corpuscular Volume 62.8 fL (80.0-98.0)
--- NOTE | 2023-01-09 09:32 | MHC.CM.PN ---
MELLY 01/09. Pt goes by the name César . Pt lives at home with her daughter, is independent/self-care. D/C plan to return home self-care. Pts daughter to transport her home. Pt states she has a HCP, copy requested. PCP: Reagan Gillis
--- NOTE | 2023-01-09 09:40 | PM.GICN ---
History of Present Illness Data of Consult Service Date: 01/09/23 Requesting physician: Lula Kaur Primary Care Provider: Unknown Physician HPI Reason for consult: iron def anemia 67-year-old female history of hypertension, hyperlipidemia, hypothyroidism, history of breast cancer s/p lumpectomy who I am seeing for assessment for iron def anemia. Patient had labs checked by PCP which revealed significant anemia with H/H 6.6/25.2%. She denies melena, hematochezia, hematemesis, epistaxis, or heamturia. Denies anorexia, abdominal pain, nausea, vomiting. Denies any unintentional weight loss. She has never undergone screening colonoscopy-but does take omeprazole 20 mg daily. Seh does admit to exertional dyspnea and syncopal episodes.Diet has been poor consisting mostly of carrots and popcorn which she states she has become addicted to over the last several months. she did receive 2 units packed red blood cells. Ct imaging: hiatal hernia, hydronephrosis, diverticulosis, no masses seen Review of Systems Review of Systems: Constitutional : No Weight loss, No Fever, No Chills ENT/Mouth : No sore throat, No Rhinorrhea Eyes: No Swelling, No Redness Cardiovascular : No Chest Pain, + SOB, No Edema Respiratory : No Cough, No Sputum, No Wheezing Gastrointestinal : see HPI Genitourinary : NO Dysuria, No Urinary Frequency unless lies on right side, No Hematuria, No Urgency Musculoskeletal : No joint pain, No Myalgias, No Joint Swelling Skin : No Skin Lesions, No rash Neuro : No Weakness, No Numbness, No Dizziness, No Headache Psych : No Anxiety/Panic, No Depression Heme/Lymph: No Bruising, No Lymphadenopathy Endocrine : No Polyuria, No Polydipsia All other systems reviewed and are negative. [facility] Past Medical History Medical History History of ductal carcinoma in situ (DCIS) of breast Hypothyroidism Hyperlipidemia Hypertension Family History Pertinent family history: No FH of CRC Surgical History Surgical History S/P lumpectomy of breast Social History Social History Household Members: Children Housing: House Do you presently have visiting nurse or other home services: No Patient Tobacco Use Status: Never used Tobacco service: No Meds Allergies Allergy/AdvReac Type Severity Reaction Status Date / Time lisinopril Allergy Angioedema Verified 01/08/23 11:10 Active Medications: Current Medications Acetaminophen (Acetaminophen 325 Mg Tablet) 650 mg PO Q6H PRN PRN Reason: Pain, Mild (Pain Scale 1-3) Last Admin: 01/08/23 20:23 Dose: 650 mg Amlodipine Besylate (Amlodipine Besylate 5 Mg Tablet) 5 mg PO DAILY [facility]; Protocol Last Admin: 01/09/23 07:35 Dose: Not Given Atorvastatin Calcium (Atorvastatin Calcium 10 Mg Tablet) 10 mg PO DAILY [facility] Last Admin: 01/09/23 07:35 Dose: Not Given Docusate Sodium (Docusate Sodium 100 Mg Capsule) 100 mg PO DAILY PRN PRN Reason: Constipation Levothyroxine Sodium (Levothyroxine Sodium 100 Mcg Tablet) 100 mcg PO DAILY@0600 [facility] Last Admin: 01/09/23 05:20 Dose: Not Given Omeprazole (Omeprazole 20 Mg Capsule.Dr) 20 mg PO DAILY@0630 [facility] Last Admin: 01/09/23 05:21 Dose: Not Given Ondansetron HCl (Ondansetron Hcl 4 Mg/2 Ml Vial) 4 mg IVPUSH Q8H PRN PRN Reason: Nausea and Vomiting Sodium Chloride (0.9 % Sodium Chloride Flush 3 Ml Syringe) 3 ml IVFLUSH QSHIFT [facility] Last Admin: 01/09/23 07:38 Dose: 3 ml Valsartan (Valsartan 40 Mg Tablet) 40 mg PO DAILY [facility] Last Admin: 01/09/23 07:35 Dose: Not Given Home Medications Medication Instructions Recorded Confirmed Last Taken Type amlodipine 5 mg tablet 5 mg PO DAILY 01/08/23 01/08/23 01/08/23 History atorvastatin 10 mg tablet 10 mg PO DAILY 01/08/23 01/08/23 01/08/23 History irbesartan 75 mg tablet 75 mg PO DAILY 01/08/23 01/08/23 01/08/23 History levothyroxine 100 mcg tablet 100 mcg PO DAILY 01/08/23 01/08/23 01/08/23 History omeprazole 20 mg capsule,delayed 20 mg PO DAILY 01/08/23 01/08/23 01/08/23 History release Physical Exam Vital Signs: Vital Signs: Last Vital Signs Temp 97.9 F 01/09/23 07:33 Pulse 66 01/09/23 07:33 Resp 18 01/09/23 07:33 BP 139/78 01/09/23 07:33 Pulse Ox 93 01/09/23 07:33 O2 Del Method Room Air 01/09/23 07:33 BMI result Body Mass Index 36.4 EXAM: GENERAL: The patient is well developed and nontoxic. VITAL SIGNS:see workflow HEENT: Nonicteric sclerae, PERRLA, EOMI. Oropharynx clear. Moist mucous membranes. Conjunctivae appear well perfused. No thyroid mass. CHEST: Chest wall is nontender. HEART: Regular rate and rhythm without murmurs. LUNGS: Clear to auscultation bilaterally. ABDOMEN: Soft, positive bowel sounds, nontender, no organomegaly.no flank tenderness SKIN: No rash, no excessive bruising, petechiae, or purpura. NEUROLOGIC: Cranial nerves II-XII intact without motor/sensory deficit. Pscyh: normal affect Results Labs 01/09/23 06:44 01/09/23 13:11 Labs: Short CBC 01/08/23 01/09/23 Range/Units 11:31 06:44 WBC 6.4 7.1 (4.8-10.8) X10*3/uL Hgb 6.4 L* 8.2 L D (12.0-16.0) g/dl Hct 23.5 L 27.5 L (37.0-47.0) % Plt Count 269 236 (160-400) X10*3/uL BMP 01/08/23 01/09/23 11:31 06:44 Sodium 142 143 Potassium 3.2 L 2.9 L Chloride 110 H 107 Carbon Dioxide 25 28 BUN 10 7 L Creatinine 0.78 0.67 Calcium 9.5 9.4 Liver Function 01/08/23 Range/Units 11:31 Total Bilirubin 0.5 (0.0-1.0) mg/dL AST 19 (5-31) U/L ALT 13 (0-31) U/L Alkaline Phosphatase 67 (39-117) U/L Albumin 4.2 (3.5-5.0) g/dL Imaging CT scan - abdomen: Attestation: I personally reviewed and interpreted this imaging study as follows: (large hiatal hernia, hydronephrosis ) My impression: hydronephrosis, diverticulosis, hiatal hernia Assessment and Plan (1) Iron deficiency: Status: Acute (2) Microcytic anemia: Status: Acute Plan 1. Iron def anemia, no overt GI blood loss, maybe 2/2 teodoro erosions from hiatal hernia, vs colonic or other upper GI path, nutritional def, celiac disease PLAN: 1/ EGD and colonoscopy today, with duodenal bx 2/ urology assessement for hydronephrosis, 3/ check celiac serology 4/ cont with PPI --increase to 40 mg BID Time Spent With Patient Time: Total time managing care of this patient today ____ minutes. Procedures Date of Service Date of Service: 01/09/23
--- NOTE | 2023-01-09 10:41 | P.PNIM_ITS ---
Subjective Subjective Date of Service: 01/09/23 Interval History: feeling better Physical Exam 2 Vital Signs: Vital Signs: Last Vital Signs Temp 97.9 F 01/09/23 07:33 Pulse 66 01/09/23 07:33 Resp 18 01/09/23 07:33 BP 139/78 01/09/23 07:33 Pulse Ox 93 01/09/23 07:33 O2 Del Method Room Air 01/09/23 07:33 BMI result Body Mass Index 36.4 GENERAL: The patient is well developed and nontoxic. VITAL SIGNS:see workflow HEENT: Nonicteric sclerae, PERRLA, EOMI. Oropharynx clear. Moist mucous membranes. Conjunctivae appear well perfused. No thyroid mass. CHEST: Chest wall is nontender. HEART: Regular rate and rhythm without murmurs. LUNGS: Clear to auscultation bilaterally. ABDOMEN: Soft, positive bowel sounds, nontender, no organomegaly.no flank tenderness SKIN: No rash, no excessive bruising, petechiae, or purpura. NEUROLOGIC: Cranial nerves II-XII intact without motor/sensory deficit. Pscyh: normal affect Objective Data Active Medications Acetaminophen (Acetaminophen 325 Mg Tablet) 650 mg PO Q6H PRN PRN Reason: Pain, Mild (Pain Scale 1-3) Last Admin: 01/08/23 20:23 Dose: 650 mg Documented By: RASTA Amlodipine Besylate (Amlodipine Besylate 5 Mg Tablet) 5 mg PO DAILY [facility]; Protocol Last Admin: 01/09/23 07:35 Dose: Not Given Documented By: MONSERRAT Non-Admin Reason: NPO Atorvastatin Calcium (Atorvastatin Calcium 10 Mg Tablet) 10 mg PO DAILY [facility] Last Admin: 01/09/23 07:35 Dose: Not Given Documented By: MONSERRAT Non-Admin Reason: NPO Docusate Sodium (Docusate Sodium 100 Mg Capsule) 100 mg PO DAILY PRN PRN Reason: Constipation Potassium Chloride (Potassium Chloride/H20) 10 meq in 100 mls @ 100 mls/hr IV Q1H [facility] Stop: 01/09/23 13:59 Levothyroxine Sodium (Levothyroxine Sodium 100 Mcg Tablet) 100 mcg PO DAILY@0600 [facility] Last Admin: 01/09/23 05:20 Dose: Not Given Documented By: KARINA Non-Admin Reason: NPO Omeprazole (Omeprazole 20 Mg Capsule.Dr) 20 mg PO DAILY@0630 [facility] Last Admin: 01/09/23 05:21 Dose: Not Given Documented By: KARINA Non-Admin Reason: NPO Ondansetron HCl (Ondansetron Hcl 4 Mg/2 Ml Vial) 4 mg IVPUSH Q8H PRN PRN Reason: Nausea and Vomiting Sodium Chloride (0.9 % Sodium Chloride Flush 3 Ml Syringe) 3 ml IVFLUSH QSHIFT [facility] Last Admin: 01/09/23 07:38 Dose: 3 ml Documented By: MONSERRAT Valsartan (Valsartan 40 Mg Tablet) 40 mg PO DAILY [facility] Last Admin: 01/09/23 07:35 Dose: Not Given Documented By: MONSERRAT Non-Admin Reason: NPO Labs 01/09/23 06:44 01/09/23 06:44 Labs: Laboratory Results - last 24 hr 01/08/23 01/08/23 01/09/23 11:31 14:45 06:44 MCV 59.3 L 62.8 L MCH 16.2 L 18.7 L MCHC 27.2 L 29.8 L RDW 21.2 H 24.7 H Plt Count 269 236 MPV Not Reportable Not Reportable Immature Gran % (Auto) 0.6 H 1.1 H Neut % (Auto) 78.9 H 68.8 Lymph % (Auto) 12.1 L 18.9 L [place] % (Auto) 5.9 7.2 Eos % (Auto) 1.7 3.2 Baso % (Auto) 0.8 0.8 Lymph # (Auto) 0.8 L 1.3 [place] # (Auto) 0.4 0.5 Eos # (Auto) 0.1 0.2 Baso # (Auto) 0.1 0.1 Abs Immat Gran (auto) 0.04 H 0.08 H Absolute Neuts (auto) 5.0 4.9 Absolute Nucleated RBC 0.000 0.040 H Nucleated RBC % (auto) 0.0 0.6 H Smear Tech's Comments VERIFIED PT 11.6 INR 1.0 APTT 24.3 L Anion Gap 10 L 11 L Estim Creat Clear Calc 71.9 84.1 Estimated GFR > 60 > 60 Random Glucose 103 95 Calcium 9.5 9.4 Phosphorus 2.2 L Magnesium 2.0 Iron 15 L TIBC 367 % Saturation 4 L Unsat Iron Binding 352 Total Bilirubin 0.5 AST 19 ALT 13 Alkaline Phosphatase 67 Total Protein 7.7 Albumin 4.2 Lipase 19 Stool Occult Blood NEGATIVE Blood Type O Negative Antibody Screen NEGATIVE Crossmatch See Detail Assessment and Plan (1) Symptomatic anemia: Status: Acute Plan 67F PMH htn, hld, hypohtyroid, breast ca s/p lumpectomy presented with iron defeciency anemia Acute on chronic iron deficiency anemia Plan for EGD and colonoscopy today PPI Acute hypokalemia Replace and monitor Hypertension Irbesartan and amlodipine Hyperlipidemia Statin Hypothyroid Synthroid Obesity Weight loss recommended DVT prophylaxis-mechanical due to iron deficiency anemia Full code reason for continued hospitalization:working up anemia Time Spent With Patient Time: Total time managing care of this patient today ____ minutes. Quality Stroke Does the patient have a stroke diagnosis?: No VTE Prior VTE?: No VTE Risk Level:: Medical - moderate - high VTE Device Contraindication: N/A - Device Ordered VTE Drug Contraindication: Treatment Not Indicated
[2023-01-09 10:54] LABS: Appearance Urine Clear; Color Urine Yellow; Glucose Urine UA Negative (Negative); Leukocyte Esterase Urine Negative (Negative); Nitrite Urine Negative (Negative); Urine Blood Negative (Negative); Urine Ketones Trace mg/dL (Negative); Urine Protein Negative (Neg-Trace)
[2023-01-09] MEDS: Potassium Chloride/H20 10 MEQ/100 ML PIGGYBACK 100 MEQ IV ×2 (10:56→12:50)
--- NOTE | 2023-01-09 12:38 | PC.NURSE ---
Addendum entered by Jeannine Ho RN 01/09/23 14:01: Pt returned to unit at 1245 for Potassium replacement. Pt then transferred to short stay at 1400 for procedure. Original Note: Pt off unit for procedure at this time.
[2023-01-09 13:48] LABS: Potassium 3.3 mmol/L (3.3-5.1)
--- NOTE | 2023-01-09 14:18 | HO.ANESPROP2 ---
HPI - Anesthesia Eval Consult details Narrative: 67 F for EGD and colonoscopy occasional palitations . NO chest pain . Anemia s/p PRBC transfusion PMFSH Active Problems Active Problems: All Active Problems (Updated 01/08/23 @ 17:27 by GISELLE Eagle) Symptomatic anemia (Acute) Abdominal pain (Acute) Iron deficiency (Acute) Microcytic anemia (Acute) Past Medical History Medical History History of ductal carcinoma in situ (DCIS) of breast Hypothyroidism Hyperlipidemia Hypertension Functional capacity: independent ambulation Family History Family history of problems with anesthesia: No Surgical History Surgical History S/P lumpectomy of breast History of Problems with Anesthesia: No Social History Social History Household Members: Children Housing: House Do you presently have visiting nurse or other home services: No Patient Tobacco Use Status: Never used Tobacco service: No Meds Allergies Allergy/AdvReac Type Severity Reaction Status Date / Time lisinopril Allergy Angioedema Verified 01/08/23 11:10 Active Medications: Current Medications Acetaminophen (Acetaminophen 325 Mg Tablet) 650 mg PO Q6H PRN PRN Reason: Pain, Mild (Pain Scale 1-3) Last Admin: 01/08/23 20:23 Dose: 650 mg Amlodipine Besylate (Amlodipine Besylate 5 Mg Tablet) 5 mg PO DAILY [facility]; Protocol Last Admin: 01/09/23 07:35 Dose: Not Given Atorvastatin Calcium (Atorvastatin Calcium 10 Mg Tablet) 10 mg PO DAILY [facility] Last Admin: 01/09/23 07:35 Dose: Not Given Docusate Sodium (Docusate Sodium 100 Mg Capsule) 100 mg PO DAILY PRN PRN Reason: Constipation Levothyroxine Sodium (Levothyroxine Sodium 100 Mcg Tablet) 100 mcg PO DAILY@0600 [facility] Last Admin: 01/09/23 05:20 Dose: Not Given Omeprazole (Omeprazole 20 Mg Capsule.Dr) 20 mg PO DAILY@0630 [facility] [place] Last Admin: 01/09/23 05:21 Dose: Not Given Ondansetron HCl (Ondansetron Hcl 4 Mg/2 Ml Vial) 4 mg IVPUSH Q8H PRN PRN Reason: Nausea and Vomiting Sodium Chloride (0.9 % Sodium Chloride Flush 3 Ml Syringe) 3 ml IVFLUSH QSHIFT [facility] Last Admin: 01/09/23 07:38 Dose: 3 ml Valsartan (Valsartan 40 Mg Tablet) 40 mg PO DAILY [facility] Last Admin: 01/09/23 07:35 Dose: Not Given Home Medications Medication Instructions Recorded Confirmed Last Taken Type amlodipine 5 mg tablet 5 mg PO DAILY 01/08/23 01/08/23 01/08/23 History atorvastatin 10 mg tablet 10 mg PO DAILY 01/08/23 01/08/23 01/08/23 History irbesartan 75 mg tablet 75 mg PO DAILY 01/08/23 01/08/23 01/08/23 History levothyroxine 100 mcg tablet 100 mcg PO DAILY 01/08/23 01/08/23 01/08/23 History Exam Exam Date and Time: January 09, 2023 141 Height,Weight and Vital Signs: Height 5 ft 1 in Weight 87.4 kg Last Vital Signs Temp 97.8 F 01/09/23 14:00 Pulse 74 01/09/23 14:00 Resp 18 01/09/23 14:00 BP 146/80 H 01/09/23 14:00 Pulse Ox 98 01/09/23 14:00 O2 Del Method Room Air 01/09/23 14:00 Pertinent Lab Results Pertinent Lab Results: Laboratory Tests 01/08/23 01/08/23 01/09/23 11:31 14:45 06:44 WBC 6.4 7.1 RBC 3.96 L 4.38 Hgb 6.4 L* 8.2 L D Hct 23.5 L 27.5 L MCV 59.3 L 62.8 L MCH 16.2 L 18.7 L MCHC 27.2 L 29.8 L RDW 21.2 H 24.7 H Plt Count 269 236 MPV Not Reportable Not Reportable Immature Gran % (Auto) 0.6 H 1.1 H Neut % (Auto) 78.9 H 68.8 Lymph % (Auto) 12.1 L 18.9 L [place] % (Auto) 5.9 7.2 Eos % (Auto) 1.7 3.2 Baso % (Auto) 0.8 0.8 Lymph # (Auto) 0.8 L 1.3 [place] # (Auto) 0.4 0.5 Eos # (Auto) 0.1 0.2 Baso # (Auto) 0.1 0.1 Abs Immat Gran (auto) 0.04 H 0.08 H Absolute Neuts (auto) 5.0 4.9 Absolute Nucleated RBC 0.000 0.040 H Nucleated RBC % (auto) 0.0 0.6 H Smear Tech's Comments VERIFIED PT 11.6 INR 1.0 APTT 24.3 L Sodium 142 143 Potassium 3.2 L 2.9 L Chloride 110 H 107 Carbon Dioxide 25 28 Anion Gap 10 L 11 L BUN 10 7 L Creatinine 0.78 0.67 Estim Creat Clear Calc 71.9 84.1 Estimated GFR > 60 > 60 Random Glucose 103 95 Calcium 9.5 9.4 Phosphorus 2.2 L Magnesium 2.0 Iron 15 L TIBC 367 % Saturation 4 L Unsat Iron Binding 352 Total Bilirubin 0.5 AST 19 ALT 13 Alkaline Phosphatase 67 Troponin I High Sens < 2.7 Total Protein 7.7 Albumin 4.2 Lipase 19 Urine Color Urine Appearance Urine pH Ur Specific [place] Urine Protein Urine Glucose (UA) Urine Ketones Urine Blood Urine Nitrite Ur Leukocyte Esterase Stool Occult Blood NEGATIVE Blood Type O Negative Antibody Screen NEGATIVE Crossmatch See Detail 01/09/23 01/09/23 10:39 13:11 WBC RBC Hgb Hct MCV MCH MCHC RDW Plt Count MPV Immature Gran % (Auto) Neut % (Auto) Lymph % (Auto) [place] % (Auto) Eos % (Auto) Baso % (Auto) Lymph # (Auto) [place] # (Auto) Eos # (Auto) Baso # (Auto) Abs Immat Gran (auto) Absolute Neuts (auto) Absolute Nucleated RBC Nucleated RBC % (auto) Smear Tech's Comments PT INR APTT Sodium Potassium 3.3 Chloride Carbon Dioxide Anion Gap BUN Creatinine Estim Creat Clear Calc Estimated GFR Random Glucose Calcium Phosphorus Magnesium Iron TIBC % Saturation Unsat Iron Binding Total Bilirubin AST ALT Alkaline Phosphatase Troponin I High Sens Total Protein Albumin Lipase Urine Color Yellow Urine Appearance Clear Urine pH 8.0 Ur Specific [place] 1.010 Urine Protein Negative Urine Glucose (UA) Negative Urine Ketones Trace Urine Blood Negative Urine Nitrite Negative Ur Leukocyte Esterase Negative Stool Occult Blood Blood Type Antibody Screen Crossmatch Airway Mallampati Class: IV Loose/Missing/Broken Teeth: Yes (poor dentition ) Assessment and Plan Assessment Anesthesia Assessment: Anesthesia Plan Discussed and Chart Reviewed Final Anesthetic Review Family History of Problems with Anesthesia: No History of Problems with Anesthesia: No NPO: Yes ASA Class: III and Emergency Final Preanesthetic Review: Meds/Allgs Chart Reviewed, Consent Obtained/Reviewed and Anes Risks/Benef Reviewed Patient Risk: Intermediate Procedure Risk: Intermediate Anesthetic Plan Anesthetic Plan: MAC: and Agree w/ Assess. and Plan Disposition: Inp. Admit - [facility]
--- NOTE | 2023-01-09 14:28 | P.OP_ITS ---
Operative Note Operative Note Date of Service: 01/09/23 Narrative: Operative Information Procedure Description: Colonoscopy (Started with colonoscopy with plan to do EGD afterwards but the EGD was not done on advice of anesthesia due to unstable air way and obstruction) Indication: iron def anemia Anesthesia: MAC COLONOSCOPY PROCEDURE NOTE COLONOSCOPY Instrument: Olympus variable stiffness ADULT scope 190L Colonoscopy Monitoring: Vital signs and clinical assessment, continuous EKG monitoring, Pulse oximetry, Carbon Dioxide monitoring and blood pressure monitoring were done throughout the procedure. Colon withdrawal time was 20 minutes. Procedure: The patient was placed in the left lateral decubitis position and pre-procedure medications were administered. After a digital rectal examination of the ano-rectum, the video colonoscope was inserted into the rectum and advanced through the colon to the cecum/TI. The colonoscope was slowly withdrawn in a retrograde panoramic fashion and the colon mucosa was carefully examined including a retroflexed view of the rectum. Findings and interventions are described below. Procedure Difficulty:easy Findings: Terminal Ileum-normal Cecum:normal Ascending Colon: normal Transverse Colon -normal Descending Colon:normal Sigmoid Colon:Mild diverticulosis, at rectosigmoid junction large pedunculated polyp measuring about 15 mm was noted. Stalk injected with epinephrine and then removed with hot snare with 2 clips applied for hemostasis. Rectum: Retroflexion with small internal hemorrhoids, grade I Anorectum - normal Colon preparation: [place] Bowel Preparation Scale Right colon; 2 Transverse colon: 2 Left colon; 2 (0 = Unprepared colon segment with mucosa not seen due to solid stool that cannot be cleared. 1 = Portion of mucosa of the colon segment seen, but other areas of the colon segment not well seen due to staining, residual stool and/or opaque liquid. 2 = Minor amount of residual staining, small fragments of stool and/or opaque liquid, but mucosa of colon segment seen well. 3 = Entire mucosa of colon segment seen well with no residual staining, small fragments of stool or opaque liquid) Impression and Post Procedure Diagnosis: Colonoscopy Findings: polyp internal hemorrhoids diverticular disease Plan: Await Pathology results Repeat Colonoscopy in 1-2 years or earlier if clinically indicated High fiber diet leaflet avoid straining at stool, epsom salts and sitz bath, anusol supps or cream on advice of anesthesia, bring back patient as outpatient and next time they will give duonebs, possible lidocaine gargle etc Above findings were reviewed with the patient and relevant handouts were provided if indicated.
--- NOTE | 2023-01-09 14:28 | MHC.SHP ---
Pre-Procedural Eval Section A Date of Service: 01/09/23 The patient is an INPATIENT: Yes The History & Physical has been completed within 30 days and I have reviewed it.: Yes Section B Chief Complaint: Acute Blood Loss Anemia Allergies: Allergies Allergy/AdvReac Type Severity Reaction Status Date / Time lisinopril Allergy Angioedema Verified 01/08/23 11:10 Plan Diagnosis/Plan: Unchanged I have reviewed the history and physical and performed a pertinent physical examination on my patient. No changes have occurred unless specified. Time Spent With Patient Time: Total time managing care of this patient today ____ minutes.
--- NOTE | 2023-01-09 16:11 | P.DS_ITS ---
DS: Providers Provider Date of Service: 01/09/23 Date of admission: 01/08/23 16:51 Primary care physician: Unknown Physician Consults: 01/08/23 16:51 Consult to Gastroenterology Routine Consulting Provider: Jeannette Mas Reason for consultation: symptomatic anemia 01/08/23 18:34 Consult to Urology Routine Consulting Provider: Jun Solorzano Reason for consultation: mild-moderate hydronephrosis- no radioopaque stone DS: Diagnosis Discharge Diagnosis (1) Iron deficiency: Status: Acute (2) Microcytic anemia: Status: Acute DS: Summary Hospital Course Hospital Course: from initial hpi: 67-year-old female history of hypertension, hyperlipidemia, hypothyroidism, history of breast cancer s/p lumpectomy and briefly treated with tamoxifen presents to the ED with her daughter who is a physician due to significant anemia. She had her annual physical history with PCP and lab work revealed H/H 6.6/25.2%. She does deny any melena, hematochezia, hematemesis, epistaxis, easy bruisability. She does however report occasional chest pains with exertion, dyspnea on exertion, palpitations, near syncopal episodes ongoing for several weeks. Her daughter also reports she is more pale than usual. She does have very poor diet with PICA. Reports cooking dinner but will often only eat carrots and popcorn. Will eat between 1-2 bags of baby carrots in a day. He denies any anorexia, abdominal pain, nausea, vomiting. Denies any unintentional weight loss. She has never undergone screening colonoscopy. On arrival, no leukocytosis. Significant microcytic anemia with H/H 6.4/23.5%, MCV 59.3 renal function normal. There is a mild hypokalemia of 3.2, phosphorus 2.2, electrolytes otherwise normal. Iron 15, TIBC within normal limits 367, 4% iron saturation. Hepatic function normal. Troponin undetectable. Stool occult blood negative. EKG shows NSR, rate 79, no ST/T-wave abnormality. CT abdomen/pelvis pending. She is currently being transfused 2 units packed red blood cells. hospital course: Patient was admitted for acute on chronic iron deficiency anemia. She received PRBC and hemoglobin improved as expected. She underwent colonoscopy which revealed polyp which was removed. EGD was not performed due to patient coughing, will be followed up outpatient. Recommendations were to increase PPI to 40 mg b.i.d. and to start iron supplement. For acute hypokalemia this was replaced. For hypertension was continue on irbesartan and amlodipine. Hyperlipidemia is continue on statin. For hypothyroidism was continue on Synthroid. For obesity weight loss recommended. Patient is feeling better will be discharged home. Time Spent with Patient Time attestation: Total time managing care of this patient today ____ minutes. Discharge coordination time: Greater than 30 minutes Quality: Safe Use of Opioids Does Pt have an Active Cancer Diagnosis on the Problem List?: No Quality: Stroke Does the patient have a stroke diagnosis?: No Physical Exam Vital Signs: Vital Signs: Last Vital Signs Temp 97.8 F 01/09/23 15:40 Pulse 79 01/09/23 15:40 Resp 18 01/09/23 15:40 BP 118/68 01/09/23 15:40 Pulse Ox 95 01/09/23 15:40 O2 Del Method Room Air 01/09/23 15:24 BMI result Body Mass Index 36.4 General: AO X 3, no acute distress Resp: CTA bilateral, no accessory muscles used CVS: S1,S2,RRR GI: soft, non tender, non distended Neuro: motor grossly intact, alert Psych: appropriate affect, appropriate insight DS: Data Data Completed and Pending Pending studies at discharge: Pending at discharge 01/09/23 15:13 Surgical [PTH] Routine Labs on day of discharge: Laboratory Results - last 24 hr 01/08/23 01/09/23 01/09/23 11:31 06:44 10:39 WBC 7.1 RBC 4.38 Hgb 8.2 L D Hct 27.5 L MCV 62.8 L MCH 18.7 L MCHC 29.8 L RDW 24.7 H Plt Count 236 MPV Not Reportable Immature Gran % (Auto) 1.1 H Neut % (Auto) 68.8 Lymph % (Auto) 18.9 L [place] % (Auto) 7.2 Eos % (Auto) 3.2 Baso % (Auto) 0.8 Lymph # (Auto) 1.3 [place] # (Auto) 0.5 Eos # (Auto) 0.2 Baso # (Auto) 0.1 Abs Immat Gran (auto) 0.08 H Absolute Neuts (auto) 4.9 Absolute Nucleated RBC 0.040 H Nucleated RBC % (auto) 0.6 H Sodium 143 Potassium 2.9 L Chloride 107 Carbon Dioxide 28 Anion Gap 11 L BUN 7 L Creatinine 0.67 Estim Creat Clear Calc 84.1 Estimated GFR > 60 Random Glucose 95 Calcium 9.4 Urine Color Yellow Urine Appearance Clear Urine pH 8.0 Ur Specific [place] 1.010 Urine Protein Negative Urine Glucose (UA) Negative Urine Ketones Trace Urine Blood Negative Urine Nitrite Negative Ur Leukocyte Esterase Negative Blood Type O Negative Antibody Screen NEGATIVE Crossmatch See Detail 01/09/23 13:11 WBC RBC Hgb Hct MCV MCH MCHC RDW Plt Count MPV Immature Gran % (Auto) Neut % (Auto) Lymph % (Auto) [place] % (Auto) Eos % (Auto) Baso % (Auto) Lymph # (Auto) [place] # (Auto) Eos # (Auto) Baso # (Auto) Abs Immat Gran (auto) Absolute Neuts (auto) Absolute Nucleated RBC Nucleated RBC % (auto) Sodium Potassium 3.3 Chloride Carbon Dioxide Anion Gap BUN Creatinine Estim Creat Clear Calc Estimated GFR Random Glucose Calcium Urine Color Urine Appearance Urine pH Ur Specific [place] Urine Protein Urine Glucose (UA) Urine Ketones Urine Blood Urine Nitrite Ur Leukocyte Esterase Blood Type Antibody Screen Crossmatch Discharge Plan Discharge Anticipated Discharge Date/Time: 01/09/23 16:07 Patient Disposition: Home, Self-Care Discharge Diagnosis: iron deficiency anemia Referrals: Jeannette Mas MD [Physician] - 1 Week Physician,Unknown J [Primary Care Provider] - 1 Week Discharge Medications: New ferrous sulfate [iron] 325 mg (65 mg iron) tablet 325 mg PO DAILY Qty: 30 0RF omeprazole 40 mg capsule,delayed release(DR/EC) 40 mg PO BID Qty: 60 0RF Continued atorvastatin 10 mg tablet 10 mg PO DAILY amlodipine 5 mg tablet 5 mg PO DAILY levothyroxine 100 mcg tablet 100 mcg PO DAILY irbesartan 75 mg tablet 75 mg PO DAILY Discontinued omeprazole 20 mg capsule,delayed release(DR/EC) 20 mg PO DAILY Discharge Orders: Discharge Order (Routine); Ordered 01/09/23 Ordered By: Fer Brizuela Diet: Advance to usual diet Activity on Discharge: As tolerated Stand Alone Forms: Patient Portal Discharge page Care Plan Goals: manage anemia Health Concerns: anemia Plan of Treatment: iron suppleemnt, omeprazole 40mg bid, follow up with gi for EGD Assessment: see above Discharge Date/Time: 01/09/23 17:22
[2023-01-09] MEDS: Potassium Chloride ER 20 MEQ TAB.ER.PRT 40 MEQ PO (16:22)
== END 2023-01-09 17:22 | disposition home or self-care (01) ==
LOC: HO.ED 15:21 → HO.EDOVER 17:12 → HO.IMC 18:25
PROVIDERS: Internal Medicine Gastroenterology; Physician Assistant; Admitting Provider Physician Assistant; Emergency Provider Emergency Medicine Emergency Medical Services; PCP Internal Medicine; Visit Provider Internal Medicine
PROC: (CPT 45385; principal; 2023-01-09 15:10)
DX: D50.9 Iron deficiency anemia, unspecified (principal); K63.5 Polyp of colon; K64.8 Other hemorrhoids; R00.2 Palpitations; I10 Essential (primary) hypertension; E78.5 Hyperlipidemia, unspecified; E03.9 Hypothyroidism, unspecified; Z85.3 Personal history of malignant neoplasm of breast; R10.31 Right lower quadrant pain; N13.30 Unspecified hydronephrosis; K46.9 Unspecified abdominal hernia without obstruction or gangrene; K57.90 Diverticulosis of intestine, part unspecified, without perforation or abscess without bleeding; E66.01 Morbid (severe) obesity due to excess calories; Z68.36 Body mass index [BMI] 36.0-36.9, adult
CPT/HCPCS: 45385; 36415; 36430; 74177; 76775; 80048; 80053; 81003; 82272; 83540; 83690; 83735; 84100; 84132; 84484; 85025; 85610; 85730; 86850; 86900; 86901; 86920; 88305; 93005; 96361; 96365; 96366; 99222; 99285; J0171; P9016; Q9967

== ENCOUNTER → 2023-01-08 16:51 | Outpatient (BNV) | payer MEDICARE, MEDICAID, SELFPAY | PROVIDERS: Admitting Provider Physician Assistant; Emergency Provider Emergency Medicine Emergency Medical Services; Visit Provider Physician Assistant | DX: D50.9 Iron deficiency anemia, unspecified (principal) | CPT/HCPCS: 99223; 99239 ==

== ENCOUNTER → 2023-01-08 16:51 | Outpatient (BNV) | payer MEDICARE, MEDICAID, SELFPAY | PROVIDERS: Admitting Provider Physician Assistant; Emergency Provider Emergency Medicine Emergency Medical Services; Visit Provider Internal Medicine Gastroenterology | DX: D50.9 Iron deficiency anemia, unspecified (principal); K63.5 Polyp of colon | CPT/HCPCS: 45381; 45385; 99222 ==

== ENCOUNTER → 2023-03-06 09:27 | Outpatient (BNV) | payer MEDICARE, MEDICAID, SELFPAY | PROVIDERS: PCP Internal Medicine; Visit Provider Internal Medicine Gastroenterology | DX: D64.9 Anemia, unspecified (principal); K29.70 Gastritis, unspecified, without bleeding | CPT/HCPCS: 43239 ==

== ENCOUNTER → 2023-03-06 09:27 | Day surgery (SDC) | payer MEDICARE, MEDICAID, SELFPAY ==
--- NOTE | 2023-03-05 12:07 | HO.ANESPROP2 ---
Documented by User: Lynne Manjarrez NP 03/05/23 12:08 HPI - Anesthesia Eval Consult details Narrative: 67yo F for EGD s/p EGD and [place] 12/2022 with MAC PMFSH Active Problems Active Problems: All Active Problems (Updated 01/17/23 @ 00:02 by Background Isaac) Symptomatic anemia (Acute) Abdominal pain (Acute) Iron deficiency (Acute) Microcytic anemia (Acute) Past Medical History Medical History History of ductal carcinoma in situ (DCIS) of breast Hypothyroidism Hyperlipidemia Hypertension Family History Family history of problems with anesthesia: No Surgical History Surgical History S/P lumpectomy of breast History of Problems with Anesthesia: No Social History Social History Household Members: Children Housing: House Do you presently have visiting nurse or other home services: No Patient Tobacco Use Status: Never used Tobacco Are you DNR?: No Advance Directives: No Advance Directives Information Provided: Yes Patient : No service: No Meds Allergies Allergy/AdvReac Type Severity Reaction Status Date / Time lisinopril Allergy Angioedema Verified 01/08/23 11:10 Home Medications Medication Instructions Recorded Confirmed Last Taken Type amlodipine 5 mg tablet 5 mg PO DAILY 01/08/23 01/08/23 03/06/23 History atorvastatin 10 mg tablet 10 mg PO DAILY 01/08/23 01/08/23 01/08/23 History irbesartan 75 mg tablet 75 mg PO DAILY 01/08/23 01/08/23 01/08/23 History levothyroxine 100 mcg tablet 100 mcg PO DAILY 01/08/23 01/08/23 01/08/23 History Exam Exam Date and Time: March 05, 2023 1207 Pertinent Lab Results Pertinent Lab Results: Laboratory Tests 01/09/23 01/09/23 06:44 13:11 WBC 7.1 Hgb 8.2 L D Hct 27.5 L Plt Count 236 Sodium 143 Potassium 3.3 Chloride 107 Carbon Dioxide 28 BUN 7 L Creatinine 0.67 Narrative Narrative: EKG 12/2022 Vent. Rate : 079 BPM Atrial Rate : 079 BPM P-R Int : 176 ms QRS Dur : 094 ms QT Int : 396 ms P-R-T Axes : 043 -10 017 degrees QTc Int : 454 ms Normal sinus rhythm Normal ECG No previous ECGs available Assessment and Plan Assessment Anesthesia Assessment: Chart Reviewed Final Anesthetic Review Family History of Problems with Anesthesia: No History of Problems with Anesthesia: No Documented by User: Blank Andersen MD 03/06/23 10:29 [facility] Past Medical History Medical History History of ductal carcinoma in situ (DCIS) of breast Hypothyroidism Hyperlipidemia Hypertension Surgical History Surgical History S/P lumpectomy of breast Social History Social History Household Members: Children Housing: House Do you presently have visiting nurse or other home services: No Patient Tobacco Use Status: Never used Tobacco Are you DNR?: No Advance Directives: No Advance Directives Information Provided: Yes Patient : No service: No Meds Allergies Allergy/AdvReac Type Severity Reaction Status Date / Time lisinopril Allergy Angioedema Verified 01/08/23 11:10 Home Medications Medication Instructions Recorded Confirmed Last Taken Type amlodipine 5 mg tablet 5 mg PO DAILY 01/08/23 01/08/23 03/06/23 History atorvastatin 10 mg tablet 10 mg PO DAILY 01/08/23 01/08/23 01/08/23 History irbesartan 75 mg tablet 75 mg PO DAILY 01/08/23 01/08/23 01/08/23 History levothyroxine 100 mcg tablet 100 mcg PO DAILY 01/08/23 01/08/23 01/08/23 History Exam Airway Mallampati Class: II TM Dist: >3cm Neck ROM: Full Loose/Missing/Broken Teeth: No Heart: RRR Lungs: CTA Assessment and Plan Assessment Anesthesia Assessment: Anesthesia Plan Discussed Final Anesthetic Review NPO: Yes ASA Class: III Final Preanesthetic Review: Meds/Allgs Chart Reviewed, Consent Obtained/Reviewed and Anes Risks/Benef Reviewed Patient Risk: Intermediate Procedure Risk: Intermediate Anesthetic Plan Anesthetic Plan: MAC: Disposition: Standard PACU
[2023-03-06 09:42] VITALS: BP 146/87; PULSE 66; RESP 18; TEMP 36.4; O2SAT 97
[2023-03-06 09:46] VITALS: BMI 35.1
[2023-03-06] MEDS: Lactated Ringers 1,000 ML 100 ML IVCONT (09:59)
--- NOTE | 2023-03-06 10:46 | MHC.SHP ---
Pre-Procedural Eval Section A Date of Service: 03/06/23 Section B Chief Complaint: Anemia, unspecified Relevant Family History (Specify if Yes): No Relevant Social History: None Present Medications: see Short Stay Collaborative assessment Medical History: Significant History (History of ductal carcinoma in situ (DCIS) of breast Hypothyroidism Hyperlipidemia Hypertension) History of Previous Operations: Relevant previous surgery/procedure and date(s) (colonoscopy,lumpectomy) Allergies: Allergies Allergy/AdvReac Type Severity Reaction Status Date / Time lisinopril Allergy Angioedema Verified 01/08/23 11:10 Review of Systems Sugical H&P ROS: Negative: Constitution, Cardiovascular, Respiratory, Neurological, Psychiatric, Hem-Onc, Allergic/Immunologic, Gastrointestinal, Genitourinary, Musculoskeletal, Integumentary, Endocrine and Eyes/Ears/Nose/Throat Exam Surgical H&P Exam: Normal: HEENT, Normal: Heart, Normal: Lungs, Normal: Extremities, Normal: Abdomen, Normal: Skin and Normal: Neurological Plan Diagnosis/Plan: Unchanged I have reviewed the history and physical and performed a pertinent physical examination on my patient. No changes have occurred unless specified. Time Spent With Patient Time: Total time managing care of this patient today ____ minutes.
--- NOTE | 2023-03-06 10:47 | W.PM.OPN ---
Operative Note Operative Note Date of Service: 03/06/23 Narrative: Procedure Description: EGD Indication: abdominal pain, anemia Anesthesia: MAC FLEXIBLE TRANSORAL UPPER GASTROINTESTINAL ENDOSCOPY UPPER ENDOSCOPY Consent: Indications for the procedure and potential complications of bleeding, perforation, reaction to medications and missed diagnosis were discussed with the patient and informed consent was obtained. Instrument: Olympus GIF H 190 J mid size upper endoscope Monitoring: Vital signs and clinical assessment, continuous EKG monitoring, Pulse oximetry, Carbon Dioxide monitoring and blood pressure monitoring were done throughout the procedure. Procedure: The patient was placed in the left lateral decubitis position and pre-procedure medications were administered and a bite block was placed. The endoscope was inserted into the mouth and advanced under direct vision to the third part of duodenum. A careful inspection was made as the upper endoscope was withdrawn including a retroflexed examination of the proximal stomach; Findings and interventions are described below. Findings: Larynx:normal Esophagus: GE junction at 33 cm, diaphragm hiatus at 38 cm, consistent with 5 cm fixed hiatal hernia. Redness and erythema in hiatal sac Stomach: Patchy gastric erythema. Biopsies were obtained. Grade 2 flap valve on retroflexed examination of the cardia. Duodenum: Normal bulb and descending duodenum, bx taken Intervention: Biopsies as noted above Impression/Findings: gastritis hiatal hernia PLAN: await bx if H pylori pos then treat cont with omeprazole, if still having sx can change PPI or refer surgery for hernia repair GERd precautions
[2023-03-06 11:17] VITALS: BP 112/60; PULSE 66; RESP 18; TEMP 36.3; O2SAT 96
[2023-03-06 11:32] VITALS: BP 134/77; PULSE 61; RESP 18; TEMP 36.3; O2SAT 95
== END | disposition home or self-care (01) ==
PROVIDERS: PCP Internal Medicine; Visit Provider Internal Medicine Gastroenterology
PROC: 0DJ08ZZ Inspection of Upper Intestinal Tract, Via Natural or Artificial Opening Endoscopic (ICD-10-PCS; CPT 43235; principal; 2023-03-06 10:50)
DX: D64.9 Anemia, unspecified (principal); K29.50 Unspecified chronic gastritis without bleeding; K44.9 Diaphragmatic hernia without obstruction or gangrene; I10 Essential (primary) hypertension; E03.9 Hypothyroidism, unspecified; E78.5 Hyperlipidemia, unspecified; Z85.3 Personal history of malignant neoplasm of breast; Z79.899 Other long term (current) drug therapy; Z88.8 Allergy status to other drugs, medicaments and biological substances
CPT/HCPCS: 43239; 88305; 88342